=== PATIENT | male | born 1980 | race Caucasian/White ===

== ENCOUNTER 2017-12-31 17:59 | Emergency (ER) | payer BC ==
[2017-12-31 19:49] VITALS: BP 154/90
[2017-12-31] MEDS ORDERED: Acyclovir* 200 MG CAP PO ONE (20:50)
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
== END 2017-12-31 20:59 | disposition home or self-care (01) ==
LOC: UCCORT 17:59
DX: B02.9 Zoster without complications (principal)
CPT/HCPCS: 99212; A9270-GY; G0463

== ENCOUNTER 2018-12-10 09:32 | Emergency (ER) | payer BC ==
[2018-12-10 10:32] VITALS: BP 140/85
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
== END 2018-12-10 11:13 | disposition home or self-care (01) ==
LOC: UCCORT 09:32
DX: J32.9 Chronic sinusitis, unspecified (principal)
CPT/HCPCS: 87651; 99212; G0463

== ENCOUNTER 2018-12-17 20:43 | Emergency (ER) | payer BC ==
[2018-12-17 20:56] VITALS: BP 161/84
[2018-12-17] MEDS ORDERED: predniSONE TAB* 20 MG PO ONE (21:07)
[2018-12-17] MEDS ORDERED: DOXYcycline CAP(*) 100 MG PO ONE (21:07)
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
== END 2018-12-17 21:28 | disposition home or self-care (01) ==
LOC: UCCORT 20:43
DX: J01.90 Acute sinusitis, unspecified (principal); J30.9 Allergic rhinitis, unspecified; J98.01 Acute bronchospasm
CPT/HCPCS: 99212; A9270-GY; G0463; J7512